=== PATIENT | female | born 1995 | race Caucasian/White ===

== ENCOUNTER → 2020-12-08 09:17 | Outpatient (BNVA) | payer OTHER, MEDICAID, SELFPAY | PROVIDERS: Visit Provider Internal Medicine | DX: R76.8 Other specified abnormal immunological findings in serum (principal); M25.50 Pain in unspecified joint; Z86.2 Personal history of diseases of the blood and blood-forming organs and certain disorders involving the immune mechanism; Z11.59 Encounter for screening for other viral diseases; Z11.1 Encounter for screening for respiratory tuberculosis; R53.83 Other fatigue; R21 Rash and other nonspecific skin eruption; Z79.899 Other long term (current) drug therapy | CPT/HCPCS: 36415; 80053; 81003; 82550; 83735; 84439; 84443; 85025; 85651; 86140; 86160; 86480; 86704; 86803; 87340; 99204 ==

== ENCOUNTER 2021-10-23 11:06 | Outpatient (CLI) | payer OTHER, MEDICAID, SELFPAY ==
[2021-10-23 11:38] LABS: Add Urine Microscopic? NO; Charge for UA Resulting for Rev
[2021-10-23 11:42] LABS: Basophils % 0.7 %; Eosinophils # 0.1 10^3/uL (0.0-0.8); Eosinophils % 1.4 %; Hematocrit 35.7 % (37.0-47.0); Hemoglobin 11.7 g/dL (11.5-15.3); Lymphocytes # 2.2 10^3/uL (0.8-4.8); Lymphocytes % 39.1 %; Mean Corpuscular HGB Conc 32.8 g/dL (30.0-36.0); Mean Corpuscular Hemoglobin 29.4 pg (28.0-34.0); Mean Corpuscular Volume 89.7 fl (81-99); Mean Platelet Volume 10.7 fL (7.4-10.4); Monocytes # 0.3 10^3/uL (0.2-0.9); Monocytes % 5.3 %; Neutrophils % 53.3 %; Nucleated Red Blood Cells % 0 %; Platelet Count 216 10^3/cmm (130-400); Red Blood Count 3.98 10^6/uL (4.1-5.3); Red Cell Distribution Width 13.2 % (12.1-15.1); White Blood Count 5.6 10^3/uL (4.0-10.0)
[2021-10-23 11:50] LABS: Erythrocyte Sedimentation Rate 2 mm/hr (0-15)
[2021-10-23 12:10] LABS: Bilirubin Urine Neg (Negative); Blood Urine Neg (Negative); Glucose Urine UA Norm (Normal); Ketones Urine Negative (Negative); Nitrate Urine Negative (Negative); Protein Urine Neg (Negative); Specific Gravity, Urine 1.015 (1.005-1.030); Urine Appearance Clear (CLEAR); Urine Color Yellow (Yellow); pH Urine 6.5 (5-7)
[2021-10-23 12:11] LABS: Leukocyte Esterase Urine Negative (Negative); Urobilinogen Urine Norm (Negative)
[2021-10-23 12:19] LABS: Alanine Aminotransferase 13 U/L (0-33); Albumin Level 4.5 g/dL (3.5-5.2); Alkaline Phosphatase 49 IU/L (35-105); Anion Gap 13.5 (5-19); Aspartate Amino Transferase 16 U/L (0-32); Blood Urea Nitrogen 10 mg/dL (6-20); Calcium 8.2 mg/dL (8.5-10.5); Carbon Dioxide 27 mmol/L (22-29); Chloride 105 mmol/L (98-107); Complement C3 78 mg/dL (90-180); Glomerular Filtration Rate 101.1 mL/min (90-130); Glucose 83 mg/dL (65-115); Osmolality Calculated 290 mOsm/kg (285-295); Potassium 4.5 mmol/L (3.5-5.1); Sodium 141 mmol/L (136-145); Total Bilirubin 0.2 mg/dL (0.15-1.2); Total Protein 6.5 g/dL (6.6-8.7)
== END 2021-10-23 11:07 | disposition home or self-care (01) ==
LOC: LAB 11:07
PROVIDERS: PCP Obstetrics & Gynecology; Visit Provider Internal Medicine
DX: R21 Rash and other nonspecific skin eruption (principal); R53.83 Other fatigue; R76.8 Other specified abnormal immunological findings in serum; Z79.899 Other long term (current) drug therapy
CPT/HCPCS: 80053; 81003; 85025; 85651; 86140; 86160